=== PATIENT | female | born 1970 | race Caucasian/White ===

== ENCOUNTER 2019-01-02 14:37 | Emergency (ER) | payer OTHER, MEDICAID ==
[~2019-01-02] VITALS: Ht 149.9 cm; Wt 78.0 kg
[~2019-01-02 14:37] MED LIST: ASEN10SU3; CLON0.5T10; DICL-164; DIVA500T4; FURO1TAB31; HYDR-1421; LEVO75CA2; OMEP-337; OXYB5TAB61; QUET200T30; TOPI25TA32; [UNRECOGNIZED DRUG - CODE]; [UNRECOGNIZED DRUG - CODE]
[2019-01-02 15:17] VITALS: BP 127/81
== END 2019-01-02 16:23 | disposition home or self-care (01) ==
LOC: ER 14:40
DX: S01.01XA Laceration without foreign body of scalp, initial encounter (principal); E11.9 Type 2 diabetes mellitus without complications; I10 Essential (primary) hypertension; E07.9 Disorder of thyroid, unspecified; F12.90 Cannabis use, unspecified, uncomplicated; Z88.2 Allergy status to sulfonamides; Z88.1 Allergy status to other antibiotic agents; Z88.8 Allergy status to other drugs, medicaments and biological substances; Z79.899 Other long term (current) drug therapy; W22.8XXA Striking against or struck by other objects, initial encounter; Y93.89 Activity, other specified; Y99.8 Other external cause status; Y92.89 Other specified places as the place of occurrence of the external cause
CPT/HCPCS: 12001; 70450; 81025